=== PATIENT | male | born 1985 | race Caucasian/White ===

== ENCOUNTER 2022-06-17 15:06 | Inpatient (IN) | payer BC, MEDICAID ==
[~2022-06-17] VITALS: Ht 175.3 cm; Wt 104.8 kg
[2022-06-17] MEDS ORDERED: KETOROLAC 30MG/ML VIAL IV STA (15:22)
[2022-06-17] MEDS ORDERED: ONDANSETRON HCL 4MG/2ML INJ IV STA (15:22)
[2022-06-17] MEDS ORDERED: MORPHINE SULFATE 4 MG/ML CPJ (NOT FOR IM USE) IV STA (15:22)
[2022-06-17] MEDS ORDERED: SODIUM CHLORIDE 0.9% 1,000 ML IV ONE (15:30)
[2022-06-17 15:58] LABS: BASOPHILS % 0.3 % (0.0-2.0); EOSINOPHILS % 0.6 % (0.0-5.0); HEMATOCRIT. 46.4 % (42.0-52.0); HEMOGLOBIN. 14.6 g/dL (14.0-18.0); LYMPHOCYTES % 13.5 % (20.0-50.0); MEAN CORPUSCULAR HEMOGLOBIN 21.5 pg (28.0-32.0); MEAN CORPUSCULAR VOLUME 68.1 fL (80.0-94.0); MONOCYTES % 4.6 % (2.0-8.0); PLATELET 272 x1000/uL (130-400); RED BLOOD CELL COUNT 6.81 mill/uL (4.7-6.1); RED CELL DISTRIBUTION WIDTH 15.7 % (11.6-14.6)
[2022-06-17 16:05] LABS: CHLORIDE 106 mEq/L (98-107)
[2022-06-17 17:56] LABS: PLATELET ESTIMATE NORMAL
[2022-06-17] MEDS ORDERED: PIPERACILLIN/TAZ 3.375G PREMIX 50 ML IV ONE (18:15)
[2022-06-17] MEDS ORDERED: SODIUM CHLORIDE 0.9% 1000ML BAG (SEPSIS BOLUS) IV ONE (18:15)
[2022-06-17 19:22] LABS: HEPATITIS B SURFACE ANTIGEN NEGATIVE
[2022-06-17 20:27] LABS: AMYLASE 2149 IU/L (25-115)
[2022-06-17] MEDS ORDERED: MORPHINE SULFATE 2 MG/ML CPJ (NOT FOR IM USE) IV NR (20:30)
[2022-06-17 22:00] VITALS: BP 134/75
[2022-06-17] MEDS ORDERED: ONDANSETRON HCL 4MG TABLET PO PRN (23:00)
[2022-06-17] MEDS ORDERED: DEXT 5%/0.45% NACL 1000ML 1,000 ML IV ONE (23:00)
[2022-06-17] MEDS ORDERED: MORPHINE SULFATE 2 MG/ML CPJ (NOT FOR IM USE) IV PRN (23:00)
[2022-06-18] MEDS ORDERED: NALOXONE HCL 0.4MG/ML VIAL IV PRN (01:30)
[2022-06-18] MEDS ORDERED: KCL 20MEQ/100ML PREMIX 100 ML IV NR (02:00)
[2022-06-18] MEDS: LEVOFLOXACIN 500MG PREMIX 100 ML IV SCH (03:06)
[2022-06-18 06:25] LABS: BASOPHILS % 0.4 % (0.0-2.0); EOSINOPHILS % 0.8 % (0.0-5.0); HEMOGLOBIN. 13.8 g/dL (14.0-18.0); LYMPHOCYTES % 11.3 % (20.0-50.0); MEAN CORPUSCULAR HEMOGLOBIN 21.5 pg (28.0-32.0); MEAN CORPUSCULAR VOLUME 68.5 fL (80.0-94.0); MONOCYTES % 6.3 % (2.0-8.0); NEUTROPHILS % 81.2 % (40.0-76.0); PLATELET 256 x1000/uL (130-400); RED BLOOD CELL COUNT 6.41 mill/uL (4.7-6.1); RED CELL DISTRIBUTION WIDTH 15.6 % (11.6-14.6)
[2022-06-18 06:44] LABS: CHLORIDE 111 mEq/L (98-107)
[2022-06-18 07:16] LABS: AMYLASE 397 IU/L (25-115)
[2022-06-18 08:00] VITALS: BP 128/75
[2022-06-18] MEDS: PANTOPRAZOLE SODIUM 40 MG/VIAL IV SCH ×2 (09:16→12:06)
[2022-06-18 12:00] VITALS: BP 123/81
[2022-06-18 16:00] VITALS: BP 128/85
[2022-06-18 18:00] VITALS: BP 115/78
[2022-06-18 20:00] VITALS: BP 135/76
[2022-06-19] VITALS: BP 142/68
[2022-06-19] MEDS: LEVOFLOXACIN 500MG PREMIX 100 ML IV SCH (02:20)
[2022-06-19 04:00] VITALS: BP 131/66
[2022-06-19 08:07] VITALS: BP 130/77
[2022-06-19] MEDS ORDERED: ACETAMINOPHEN 325MG TABLET PO PRN (09:00)
[2022-06-19 11:22] LABS: BASOPHILS % 0.4 % (0.0-2.0); EOSINOPHILS % 1.6 % (0.0-5.0); HEMATOCRIT. 41.7 % (42.0-52.0); HEMOGLOBIN. 13.1 g/dL (14.0-18.0); LYMPHOCYTES % 12.7 % (20.0-50.0); MEAN CORPUSCULAR HEMOGLOBIN 21.1 pg (28.0-32.0); MEAN CORPUSCULAR VOLUME 67.1 fL (80.0-94.0); MEAN PLATELET VOLUME 8.1 fl (7.4-10.4); MONOCYTES % 6.3 % (2.0-8.0); PLATELET 239 x1000/uL (130-400); RED BLOOD CELL COUNT 6.21 mill/uL (4.7-6.1); RED CELL DISTRIBUTION WIDTH 15.4 % (11.6-14.6)
[2022-06-19 12:00] VITALS: BP 129/77
[2022-06-19 15:49] VITALS: BP 139/75
[2022-06-19 17:13] VITALS: BP 139/75
[2022-06-20] MEDS ORDERED: FAMOTIDINE 20MG/2ML VIAL IV SCH (09:00)
== END 2022-06-19 18:44 | disposition home or self-care (01) | DRG 444 ==
LOC: ER 15:06 → 8WST 19:02 → EDBEDREQ 19:04 → EDBEDREQTM 19:04 → ENRESERV 20:37
PROVIDERS: ADMIT Internal Medicine; ATTEND Internal Medicine
DX: K80.62 Calculus of gallbladder and bile duct with acute cholecystitis without obstruction (principal); K85.10 Biliary acute pancreatitis without necrosis or infection; E66.9 Obesity, unspecified; R74.01 Elevation of levels of liver transaminase levels; Z68.34 Body mass index [BMI] 34.0-34.9, adult
CPT/HCPCS: 36415; 76705; 80053; 80076; 82150; 82310; 83605; 83615; 84145; 85025; 86705; 86709; 86803; 87340; 99291; C9113; J1885; J1956; J2270; J2405; J2543; J3480; J7030